=== PATIENT | female | born 1990 | race Asian ===

== ENCOUNTER 2016-11-01 12:01 | Emergency (ER) | payer BC, OTHER ==
[~2016-11-01] VITALS: Ht 162.6 cm; Wt 62.7 kg
[~2016-11-01 12:01] MED LIST: PRENTAB26 PO
[2016-11-01 12:10] VITALS: TEMP 37; Ht 162.6 cm; Wt 62.7 kg
--- NOTE | 2016-11-01 12:26 | EMERGENCY ROOM VISIT NOTE ---
ED Visit Note First contact with patient: 12:14 CHIEF COMPLAINT : Sore throat / HISTORY OF PRESENT ILLNESS: This 26-year-old female presents the ER with chief complaint of sore throat. The patient states that she gets a sharp pain when she is eating or just breathing intermittently. She has been able to swallow fluids without difficulty. She states the symptoms started on Wednesday. She states just prior to the onset of symptoms she breathes in a lot of pepper. She does have some environmental allergies. The patient states she went to urgent care on for her symptoms but stated that everything was negative. The patient denies any other cold symptoms of fever, ear pain, head congestion. REVIEW OF SYSTEMS: 6 system review was performed and was negative unless stated otherwise in history of present illness. PMH: The patient is healthy; tonsillectomy, GERD SOCIAL HISTORY: Patient lives with her family. The patient denies tobacco use. PHYSICAL EXAM: Vital Signs were reviewed: Temperature 37.0, blood pressure 97/66 , pulse 72, respiratory rate 18 Reviewed Nurse's notes and agree. Oxygen saturation is 96 % on room air which is normal . GENERAL: 26-year-old female appears in no acute distress. MENTAL STATUS: Alert, oriented, coherent. EARS: Canals clear. TMs good light reflex, no erythema or fluid level noted. NOSE: Nasal mucosa with moderate erythema engorgement. PHARYNX: Tonsils and uvula are absent. Posterior pharynx with cobblestoning noted. No erythema or edema noted. No exudate noted. Airway is adequate. NECK: Supple, non-tender. No lymphadenopathy noted. LUNGS: Clear to auscultation without wheezes rales or rhonchi. CARDIAC: Regular rate and rhythm without murmur. SKIN: No rashes noted. EMERGENCY COURSE: Rapid strep was negative. Culture is pending. DIAGNOSIS: Throat irritation most likely allergic DISCHARGE INSTRUCTIONS & TREATMENT: Recommend [id number] Zyrtec or Claritin once daily as directed on the label. If symptoms persist or worsen, follow-up with your family doctor. Problem List Medical Problems: (1) No significant medical problems Status: Chronic Surgical Problems: (1) No significant past surgical history Status: Chronic Current/Historical Medications Scheduled Multivit/Min/Iron/Fol Ac/Pren ( Vitamin), 1 TAB PO DAILY Allergies Coded Allergies: No Known Allergies (Unverified , 09/14/14) Vital Signs Date Time Temp Pulse Resp B/P Pulse Ox O2 Delivery O2 Flow Rate FiO2 11/01/16 12:13 96 Room Air 11/01/16 12:10 37.0 72 18 97/66 96 Room Air Departure Information Referrals No Doctor, Assigned (PCP) Patient Instructions [facility]
[2016-11-01 12:38] VITALS: BP 100/59; PULSE 68; O2SAT 99
== END 2016-11-01 12:39 | disposition home or self-care (01) ==
LOC: C.EDB 12:02 → C.EDD 12:39
DX: J39.2 Other diseases of pharynx (principal); Z90.89 Acquired absence of other organs

== ENCOUNTER → 2017-05-28 | Outpatient (CLI) | payer BC ==
--- NOTE | 2017-05-28 16:15 | DIAGNOSTIC IMAGING REPORT ---
NASAL BONES MIN 3 VIEWS HISTORY: 26 years-old Female UNSPECIFIED INJURY OF NSOSE,INITIAL ENCOUNTER acute nasal bone injury. Concern for fracture. COMPARISON: None available TECHNIQUE: 3 views of the nasal bones FINDINGS: Paranasal sinuses appear symmetrically aerated. There is a subtle transversely oriented lucency across the distal aspect of the nasal bone seen most prominently on the right. No displaced fracture or significant soft tissue swelling. IMPRESSION: Subtle transversely oriented lucency of the distal nasal bone, suspicious for acute nondisplaced fracture. The above report was generated using voice recognition software. It may contain grammatical, syntax or spelling errors. Electronically signed by: Rico Ji M.D. 05/28/2017 4:13 PM Dictated Date/Time: 05/28/2017 4:12 PM
== END | disposition home or self-care (01) ==
LOC: C.RAD1850 15:59
PROVIDERS: ATTEND Family Medicine
DX: S09.92XA Unspecified injury of nose, initial encounter (principal); X58.XXXA Exposure to other specified factors, initial encounter